=== PATIENT | male | born 1980 | race Caucasian/White ===

== ENCOUNTER 2019-06-06 06:15 | Day surgery (SDC) | payer OTHER ==
[~2019-06-06] VITALS: Ht 177.8 cm; Wt 94.4 kg
[2019-06-06] MEDS ORDERED: SODIUM CHLORIDE 0.9% 1,000 ML IV SCH (06:42)
[2019-06-06 06:45] VITALS: BP 126/83
[2019-06-06 07:23] LABS: INTERNATIONAL NORMALIZED RATIO 1.01 (0.93-1.1); PROTHROMBIN TIME 10.6 Seconds (9.6-11.5)
[2019-06-06] MEDS ORDERED: NALOXONE 1 MG/ML, 2ML ONE (07:56)
[2019-06-06] MEDS ORDERED: FLUMAZENIL 0.1 MG/1 ML, 5ML ONE (07:56)
[2019-06-06] MEDS ORDERED: MIDAZOLAM 1 MG/ML, 5ML ONE (07:56)
[2019-06-06] MEDS ORDERED: FENTANYL PF 100 MCG/2ML ONE ×2 (07:56)
== END 2019-06-06 11:15 | disposition home or self-care (01) ==
LOC: OUT 06:15
PROVIDERS: ATTEND Internal Medicine Nephrology
DX: I12.9 Hypertensive chronic kidney disease with stage 1 through stage 4 chronic kidney disease, or unspecified chronic kidney disease (principal); N18.3 Chronic kidney disease, stage 3 (moderate); M10.9 Gout, unspecified; E66.3 Overweight; Z68.30 Body mass index [BMI] 30.0-30.9, adult; Z79.01 Long term (current) use of anticoagulants; Z82.49 Family history of ischemic heart disease and other diseases of the circulatory system
CPT/HCPCS: 36415; 50200; 77012; 85610; 88300; 99156; 99157; J2250; J3010; J7030; J2310